=== PATIENT | female | born 1950 | race African-American/Black ===

== ENCOUNTER 2017-11-26 07:07 | Day surgery (SDC) | payer BC ==
[2017-11-23 11:12] VITALS: BMI 24.7
--- NOTE | 2017-11-23 14:19 | HP ---
Admitting History and Physical - Primary Care Physician PCP: Jorden Urrutia - Admission Chief Complaint: right breast cancer History of Present Illness: 67 year old postmenapausal female who underwent routine mammogram 09/2017 showing developing right breast retroareolar density. US showed 1.1 cm irregular mass right retroareolar region. 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 Breast MRI showed localized right breast cancer W/O adenopathy. History Source: Patient Limitations to Obtaining History: No Limitations - Past Medical History Endocrine: Yes: Diabetes Mellitus - Past Surgical History Past Surgical History: Yes: Additional Past Surgical History: bilateral shoulder surgery - Smoking History Smoking history: Never smoked - Alcohol/Substance Use Hx Alcohol Use: Yes (RARELY) Home Medications - Allergies Allergies/Adverse Reactions: Allergies Allergy/AdvReac Type Severity Reaction Status Date / Time procaine [From Novocain] AdvReac Verified 11/23/17 11:03 - Home Medications Home Medications: Ambulatory Orders Insulin Detemir [Levemir Flextouch] 40 unit SQ BID 11/23/17 Metformin HCl [Glucophage] 1,000 mg PO BID 11/23/17 Family Disease History - Family Disease History Family History: Denies Physical Examination Constitutional: Yes: No Distress Breast(s): Yes: Other (Ptotic full C cup breast Post bx right breast changes with bruising resolving no palpable mass or adenopathy bilaterally) Problem List - Problems (1) Breast cancer, right breast Code(s): C50.911 - MALIGNANT NEOPLASM OF UNSP SITE OF RIGHT FEMALE BREAST Qualifiers: Breast location: central portion of breast Estrogen receptor status: positive Patient sex: female Qualified Code(s): C50.111 - Malignant neoplasm of central portion of right female breast; Z17.0 - Estrogen receptor positive status [ER+] Assessment/Plan Right breast wide excision ,sentenel node biopsy, lymphoscintogram, possible axillary node dissection, mammogram needle localization
[2017-11-26] MEDS ORDERED: BUPIVACAINE HCL/PF 2.5 MG/ML - 30 ML VIAL IJ ONE (12:13)
[2017-11-26] MEDS ORDERED: GUM MASTIC/STORAX/MSAL/ALCOHOL 1 DRP DROPSBTL MC ONE (12:13)
[2017-11-26] MEDS ORDERED: PROPOFOL 20 ML ONE (12:21)
[2017-11-26] MEDS ORDERED: MIDAZOLAM HCL 2 MG/2 ML SINGLE DOSE VIAL ONE (12:21)
[2017-11-26] MEDS ORDERED: SUCCINYLCHOLINE CHLORIDE 200 MG/10 ML VIAL ONE (12:21)
[2017-11-26] MEDS ORDERED: ONDANSETRON 4 MG/2 ML VIAL IVPUSH PRN ×2 (14:30→14:37)
[2017-11-26] MEDS ORDERED: KETOROLAC TROMETHAMINE 30 MG/1 ML VIAL IVPUSH PRN (14:30)
[2017-11-26] MEDS ORDERED: DEXTROSE 5%-0.45% SALINE 1,000 ML IV SCH (14:30)
[2017-11-26] MEDS ORDERED: PROMETHAZINE HCL 25 MG/1 ML VIAL IVPUSH PRN (14:37)
[2017-11-26] MEDS ORDERED: oxyCODONE HCL 5 MG TABLET PO PRN ×2 (14:37)
[2017-11-26] MEDS ORDERED: ONDANSETRON 4 MG/2 ML VIAL ONE (14:53)
--- NOTE | 2017-11-26 15:01 | OP ---
DATE OF OPERATION: 11/26/2017 PREOPERATIVE DIAGNOSIS: Right central breast cancer. POSTOPERATIVE DIAGNOSIS: Right central breast cancer. PROCEDURE PERFORMED: Right breast partial mastectomy with mammographic needle localization and right axillary sentinel lymph node biopsy. PRIMARY SURGEON: Rani Urrutia MD INTERNATIONAL EXCHANGE COORDINATOR: CATIA Dodd ANESTHESIA: General laryngeal mask airway anesthesia. COMPLICATIONS: There were no complications. INDICATIONS: Briefly, the patient is a 67-year-old , postmenopausal female of [place] descent but no family history of breast or ovarian cancer. She was found to have a right retroareolar mass on screening mammography on October 12, 2017, and ultrasound confirmed a 1.1-cm retroareolar mass, which was biopsied under ultrasound guidance on October 26, 2017, showing an invasive ductal cancer, which was poorly differentiated and ER/CA positive and HER-II/NEISHA negative. The patient underwent an MRI, showing localized disease. The patient was found to be a good candidate for right breast partial mastectomy and understood the need for sentinel lymph node biopsy. DESCRIPTION OF PROCEDURE: The patient was brought in for the procedure on November 26, 2017. She first underwent mammographic needle localization and lymph node scintigraphy, performed at [facility], and was brought to the [facility] holding area. In the holding area, site verification was made and informed consent was obtained. She was brought into the operating room and laid on the OR table in the supine position. The right breast was sterilely prepped and draped in the usual fashion. She had Venodynes placed on the lower extremities prior to induction. She received 1 gm of Ancef prior to incision. She underwent general laryngeal mask airway anesthesia. Lymphazurin Blue, 3 mL, was injected intradermally and peritumorly around the needle localization site, and massage was instituted. An incision was made just below the hair-bearing area of the right axilla, and dissection was undertaken. A blue lymphatic was seen coursing to a blue hot lymph node with a 10-second gamma count of 5073. No other hot or blue nodes were found, and background count (after removal of this node) was 47. The node was sent down to pathology for permanent section, in formation. Hemostasis was achieved and the axillary wound was closed using interrupted 2-0 plain suture and then interrupted 3-0 deep dermal Vicryl suture and a running 4-0 subcuticular Biosyn suture. At this point a wide excision was undertaken around the needle localization site. Incision was made around the periareolar border of the right breast nipple-areolar complex. Dissection was undertaken around the needle localization and the breast tissue was completely removed from around the wire, with the wire intact in the middle of the specimen. The specimen was oriented with a long lateral suture and a short superior suture. Specimen radiograph showed removal of the clip in question. Hemostasis was achieved. At this point, separate margins were then on the superior, inferior, medial, lateral, deep and anterior margins, with a suture marking the biopsy cavity side. A 4 x 3 tissue-transfer closure was accomplished by bringing in about a 4-cm region of breast tissue into the defect. The breast tissue was then reapproximated using 2-0 plain suture. The skin was closed using interrupted 3-0 deep dermal Vicryl suture and a running 4-0 subcuticular Biosyn suture. Mastisol and Steri-Strips were applied over the wounds, with a compressive dressing placed over this. She was placed in a surgical bra postoperatively. All sponge and needle counts were correct at the end of the case. Estimated blood loss was about 20 mL. She was hemodynamically stable throughout. The patient had the laryngeal mask airway tube removed at the end of the case. She will be recovered in the postanesthesia care unit and then discharged home the same day once discharge criteria are met. She is to follow up in the office in 1 week for a formal wound and pathology check. RANI URRUTIA M.D. [id number]
[2017-11-26 16:56] VITALS: BP 116/74; PULSE 78
[2017-11-26 16:58] VITALS: TEMP 98
--- NOTE | 2017-12-01 18:11 | PATH ---
Surgical Pathology Report Patient Name: DEBBIE CAZARES [facility]. Rec. #: [id number] /Age/Gender: 1950 (Age: 67) / F Account: [id number] Location: [facility] AMBULATORY Taken: 11/26/2017 Received: 11/26/2017 Reported: 12/01/2017 Physicians: Jorden Urrutia M.D. Specimen(s) Received A: SENTINEL LYMPH NODE #1 RIGHT B: RIGHT BREAST WIDE EXCISION C: RIGHT BREAST SUPERIOR MARGIN D: RIGHT BREAST MEDIAL MARGIN E: RIGHT BREAST INFERIOR MARGIN F: RIGHT BREAST LATERAL MARGIN G: RIGHT BREAST DEEP MARGIN H: RIGHT BREAST ANTERIOR MARGIN Clinical History Invasive, right, retroareolar cancer DL/11/27/2017 Final Diagnosis A. SENTINEL LYMPH NODE #1, RIGHT, EXCISION: ONE LYMPH NODE WITH ISOLATED TUMOR CELL CLUSTERS ON H&E AND CONFIRMED BY CYTOKERATIN AE1/3 (0/1, =0.2 mm and =200 cells). NO EXTRANODAL EXTENSION IDENTIFIED. B. BREAST, RIGHT, WIDE EXCISION: INVASIVE DUCTAL CARCINOMA, POORLY DIFFERENTIATED (TUBULE SCORE: 3/3, NUCLEAR GRADE: 3/3, MITOTIC SCORE: 3/3; TOTAL MAYRA SCORE: 9/9) WITH MICROPAPILLARY FEATURES. INVASIVE CARCINOMA MEASURES 1.3 CM IN GREATEST MICROSCOPIC DIMENSION. EXTENSIVE DUCTAL CARCINOMA IN SITU (DCIS), SOLID, CRIBRIFORM, AND MICROPAPILLARY TYPES, HIGH NUCLEAR GRADE, WITH ASSOCIATED MODERATE NECROSIS. DCIS PRESENT ADJACENT INVASIVE CARCINOMA AND SURROUNDING BREAST TISSUE. LYMPHOVASCULAR INVASION IDENTIFIED. SURGICAL MARGINS ARE UNINVOLVED BY INVASIVE CARCINOMA; INVASIVE CARCINOMA IS 3 MM FROM CLOSEST DEEP MARGIN. DCIS IS <1 MM FROM INFERIOR AND DEEP MARGINS. SEE SPECIMEN C-H FOR FINAL MARGINS. PRIOR BIOPSY SITE CHANGES ARE PRESENT. REMAINDER OF BREAST TISSUE SHOWS SMALL FIBROADENOMA, FIBROCYSTIC CHANGES INCLUDING STROMAL FIBROSIS, MICROCYSTS, FOCAL ATYPICAL AND USUAL DUCTAL HYPERPLASIA. PATHOLOGIC STAGE (PTNM): pT1c pN0 (i+) (sn). SEE INVASIVE CARCINOMA CASE SUMMARY BELOW. C. BREAST, RIGHT, SUPERIOR MARGIN, EXCISION: DUCTAL CARCINOMA IN SITU (DCIS). NEW SURGICAL MARGIN IS NEGATIVE. D. BREAST, RIGHT, MEDIAL MARGIN, EXCISION: BENIGN BREAST TISSUE. E. BREAST, RIGHT, INFERIOR MARGIN, EXCISION: FOCAL DUCTAL CARCINOMA IN SITU (DCIS). NEW SURGICAL MARGIN IS NEGATIVE. F. BREAST, RIGHT, LATERAL MARGIN, EXCISION: DUCTAL CARCINOMA IN SITU (DCIS). DCIS IS 2 MM FROM NEW SURGICAL MARGIN. G. BREAST, RIGHT, DEEP MARGIN, EXCISION: BENIGN BREAST TISSUE. H. BREAST, RIGHT, ANTERIOR MARGIN, EXCISION: BENIGN BREAST TISSUE. Comments Breast Invasive Carcinoma: Surgical Pathology Case Summary (Based on AJCC TNM 8 th edition) Procedure _X_ Excision (less than total mastectomy) Specimen Laterality _X_ Right Tumor Size _X__ Greatest dimension of largest invasive focus >1 mm (specify exact measurement) (millimeters): _13_ mm Histologic Type _X__ Invasive ductal carcinoma with micropapillary features Histologic Grade (Mayra Histologic Score) Glandular (Acinar)/Tubular Differentiation _X_ Score 3 (<10% of tumor area forming glandular/tubular structures) Nuclear Pleomorphism _X_ Score 3 Mitotic Rate _X_ Score 3 Overall Grade _X_ Grade 3 (scores of 9) Tumor Focality _X_ Single focus of invasive carcinoma Ductal Carcinoma In Situ (DCIS) _X__ DCIS is present in specimen _X_ Positive for extensive intraductal component (EIC) Margins Invasive Carcinoma Margins _X__ Uninvolved by invasive carcinoma Distance from closest margin (millimeters): 3 mm Closest margin: Deep DCIS Margins _X__ Uninvolved by DCIS Distance from closest margin (millimeters): Lateral: 2 mm from new margin (F); Deep and inferior: <1 mm in wide excision, but negative in new margins (E,G) Closest margin: new lateral Regional Lymph Nodes Number of Lymph Nodes with Macrometastases (>2 mm): 0 Number of Lymph Nodes with Micrometastases (>0.2 mm to 2 mm and/or >200 cells): 0 Number of Lymph Nodes with Isolated Tumor Cells (=0.2 mm and =200 cells): 1 Size of Largest Metastatic Deposit (millimeters): < 200 cells Extranodal Extension: _X__ Not identified Number of Lymph Nodes Examined: 1 Number of [place] Nodes Examined : 1 Treatment Effect _X_ No known presurgical therapy Lymphovascular Invasion _X__ Present Pathologic Stage Classification (pTNM, AJCC 8th Edition) Primary Tumor (Invasive Carcinoma) (pT) _X__ pT1c: Tumor >10 mm but =20 mm in greatest dimension Regional Lymph Nodes (pN) Modifier _X__ (sn): [place] node(s) evaluated. Category (pN) _X__ pN0 (i+): ITCs only (malignant cell clusters no larger than 0.2 mm) in regional lymph node(s) Biomarker Studies Results of ER and WY studies performed on this specimen on prior biopsy ([id number]) at [facility] are as follows: ER (clone [id number] mouse monoclonal antibody by [employer]): 100% nuclear staining with strong intensity (Positive). WY (clone16 mouse monoclonal antibody by Leica): ~5% nuclear staining with strong intensity (Positive). Results of Her2 (IHC) & Ki-67 studies performed on prior biopsy ([id number]) at [place], [place] ([id number]) are as follows: Her2 IHC (EP3 from [employer], formerly known as [id number], using Irizarry Polymer Refine detection kit): 0 (Negative). Ki67: ~60% (High proliferative index). Electronically Signed Leticia Haji M.D. Gross Description A. Received in formalin labeled "sentinel lymph node #1 right breast," is a 1.1 x 0.8 x 0.6 cm otto lymph node with attached fat. The specimen is bisected and entirely submitted in one cassette. B. Received in formalin, labeled "right breast wide excision," is a 6.3 x 5.0 x 2.7 cm. otto-yellow, irregular, portion of fibroadipose tissue with a needle localization wire present. There is a short suture marking the superior aspect and a long suture marking the lateral aspect, per the surgeon. There is no skin or nipple present. The specimen is inked as follows: superior and lateral blue; inferior green; medial yellow; anterior red; deep black. The specimen is serially sectioned from medial to lateral. Sectioning reveals a 1.3 x 0.9 x 0.7 cm otto, indurated mass at 0.4 cm from the deep margin. The mass is 1.1 cm from the anterior margin and show 1.0 cm from the superior margin. The remaining margins appear clear of the mass. Coroner'S Juror sections are submitted in cassettes as follows: 1-fullface section of mass with deep margin; 2-additional fullface section of mass with deep margin; 3-superior margin; 4-anterior margin; 3-5-vzmovmrk margin; 7-medial margin; 8-lateral margin. Time to formalin fixation: Less than one minute Total formalin fixation time: Approximately 29 hours. C. Received in formalin labeled "right breast superior margin," is a 3.2 x 2.2 x 1.2 cm portion of fibroadipose tissue with a suture marking the biopsy cavity side, per the surgeon. The new margin is inked blue and the specimen is serially sectioned. The specimen is entirely and sequentially submitted in 4 cassettes. D. Received in formalin labeled "right breast medial margin," is a 3.2 x 2.1 x 0.7 cm portion of fibroadipose tissue with a suture marking the biopsy cavity side, per the surgeon. The new margin is inked blue and the specimen is serially sectioned. The specimen is entirely submitted in 3 cassettes. E. Received in formalin labeled "right breast inferior margin," is a 3.0 x 2.2 x 0.8 cm portion of fibroadipose tissue with a suture marking the biopsy cavity side, per surgeon. The new margin is inked blue and the specimen is serially sectioned. The specimen is entirely and sequentially submitted in 4 cassettes. F. Received in formalin labeled "right breast lateral margin," is a 2.6 x 2.5 x 0.7 cm portion of fibroadipose tissue with a suture marking the biopsy cavity side, per the surgeon. The new margin is inked blue and the specimen is serially sectioned. The specimen is entirely and sequentially submitted in 4 cassettes. G. Received in formalin labeled "right breast deep margin," is a 2.5 x 2.3 x 1.0 cm portion of fibroadipose tissue with a suture marking the biopsy cavity side, per the surgeon. The new margin is inked blue and the specimen is serially sectioned. The specimen is entirely and sequentially submitted in 5 cassettes. H. Received in formalin labeled "right breast anterior margin," is a 2.6 x 1.7 x 0.6 cm portion of fibroadipose tissue with a suture marking the biopsy cavity side, per the surgeon. The new margin is inked blue and the specimen is serially sectioned. The specimen is entirely submitted in 3 cassettes. 11/27/2017
== END 2017-11-26 16:50 | disposition home or self-care (01) ==
LOC: FASU 07:07
PROVIDERS: ATTEND Surgery Surgical Oncology
PROC: 0HBT0ZZ Excision of Right Breast, Open Approach (ICD-10-PCS; principal; 2017-11-26 13:06)
PROC: 0JX60ZB Transfer Chest Subcutaneous Tissue and Fascia with Skin and Subcutaneous Tissue, Open Approach (ICD-10-PCS; 2017-11-26 13:06)
DX: C50.111 Malignant neoplasm of central portion of right female breast (principal); Z17.0 Estrogen receptor positive status [ER+]; E11.9 Type 2 diabetes mellitus without complications
CPT/HCPCS: 19281; 78195-TC; 82962; 88307-TC; 94760; A9541

== ENCOUNTER 2017-12-08 11:39 | Day surgery (SDC) | payer BC ==
[2017-12-04 14:17] VITALS: BMI 24.7
--- NOTE | 2017-12-04 14:21 | HP ---
Admitting History and Physical - Primary Care Physician PCP: Jorden Urrutia - Admission Chief Complaint: right breast cancer History of Present Illness: Patient is a 67 yo female S/P right breast WE and snbx on 11/26/2017 which was positive for infitrating ductal ca and DCIS. Further DCIS was noted in the superior, inferior and lateral margins therefore patient is presenting for reexcision of positive margins. History Source: Patient Limitations to Obtaining History: No Limitations - Past Medical History Endocrine: Yes: Diabetes Mellitus - Past Surgical History Past Surgical History: Yes: Additional Past Surgical History: bilaterl shoulder sx - Smoking History Smoking history: Never smoked - Alcohol/Substance Use Hx Alcohol Use: Yes (RARELY) Home Medications - Allergies Allergies/Adverse Reactions: Allergies Allergy/AdvReac Type Severity Reaction Status Date / Time procaine [From Novocain] AdvReac Verified 12/04/17 13:29 - Home Medications Home Medications: Ambulatory Orders Insulin Detemir [Levemir Flextouch] 30 unit SQ BID 11/23/17 Metformin HCl [Glucophage] 1,000 mg PO BID 11/23/17 Review of Systems - Review of Systems Constitutional: reports: No Symptoms Cardiovascular: reports: No Symptoms Respiratory: reports: No Symptoms Physical Examination Breast(s): Yes: Other (Right incision is clean without discharge or erythema noted) Problem List - Problems (1) Breast cancer, right breast Code(s): C50.911 - MALIGNANT NEOPLASM OF UNSP SITE OF RIGHT FEMALE BREAST Qualifiers: Breast location: central portion of breast Estrogen receptor status: positive Patient sex: female Qualified Code(s): C50.111 - Malignant neoplasm of central portion of right female breast; Z17.0 - Estrogen receptor positive status [ER+] Assessment/Plan Plan: Reexcision of positive margins of the right breast.
[2017-12-08] MEDS ORDERED: MIDAZOLAM HCL 2 MG/2 ML SINGLE DOSE VIAL ONE (13:16)
[2017-12-08] MEDS ORDERED: PROPOFOL 20 ML ONE (13:16)
[2017-12-08] MEDS ORDERED: BUPIVACAINE HCL/PF 2.5 MG/ML - 30 ML VIAL IJ ONE (13:50)
[2017-12-08] MEDS ORDERED: LIDOCAINE HCL 1%, 10 MG/ML (20ML VIAL) ONE ×2 (13:50→14:19)
[2017-12-08] MEDS ORDERED: KETOROLAC TROMETHAMINE 30 MG/1 ML VIAL IVPUSH PRN (15:04)
[2017-12-08] MEDS ORDERED: ONDANSETRON 4 MG/2 ML VIAL IVPUSH PRN (15:04)
[2017-12-08] MEDS ORDERED: oxyCODONE HCL 5 MG TABLET PO PRN ×2 (15:12)
[2017-12-08] MEDS ORDERED: DEXTROSE 5%-0.45% SALINE 1,000 ML IV SCH (15:15)
[2017-12-08] MEDS ORDERED: LACTATED RINGERS SOLUTION 1,000 ML IV SCH (15:15)
[2017-12-08 16:14] VITALS: TEMP 97.9
--- NOTE | 2017-12-08 16:22 | OP ---
DATE OF OPERATION: 12/08/2017 PREOPERATIVE DIAGNOSIS: Right breast central breast cancer. POSTOPERATIVE DIAGNOSIS: Right breast central breast cancer. PROCEDURE: Reexcision of margins on the superior, inferior, and lateral aspects. SURGEON: Rani Urrutia M.D. PACKAGE SORTER: Sivakumar Wild COMPLICATIONS: There were no complications. DESCRIPTION OF PROCEDURE: Briefly, the patient is a 67-year-old 2, para 2 postmenopausal female with [place] descent but no family history of breast or ovarian cancer. She was found to have a right breast retroareolar breast cancer found on screening mammography and ultrasound in September and October of 2017. Ultrasound core biopsy showed a poorly differentiated ER/FL positive HER2/robe negative breast cancer. MRI showed it to be localized. She underwent a right breast partial mastectomy on November 26, 2017, with a sentinel lymph node biopsy which showed a 1.3 cm poorly differentiated invasive duct cancer with extensive intraductal component and lymphovascular invasion. The sentinel node was negative just with some isolated tumor cells. Unfortunately there was some further on the superior, inferior, lateral margins, and she was advised on reexcision. The patient is brought in now for reexcision of margins. The patient came into ambulatory surgery and in the holding area site verification was made, informed consent was obtained. She was brought into the operating room and laid on the OR table in the supine position. Venodynes were placed on the lower extremities. She received a gram of Ancef prior to incision. The right breast was sterilely prepped and draped in the usual sterile fashion. She was given IV sedation and 1% lidocaine is given directly underneath the previous periareolar incision. The right breast lateral periareolar incision was reopened. Dissection was undertaken and the cavity was easily found. There was a small hematoma which was evacuated. Separate margins were then taken on the superior, inferior, and lateral aspects with sutures marking the biopsy cavity of each specimen, and the specimens were each sent to separately to pathology in formalin. Hemostasis was achieved. A partial tissue transfer closure was then again accomplished by bringing in about 3 x 4 cm area of breast tissue into the wound and reapproximated using interrupted 2-0 plain suture. The skin was then closed using interrupted 3-0 deep dermal Vicryl suture and a running 4-0 subcuticular Biosyn suture. Mastisol, Steri-Strips were applied over the wound. A compressive dressing placed over this. The patient tolerated procedure well without difficulty. Estimated blood loss was minimal. The patient was awake and alert, and the procedure brought back to ambulatory surgery where she will be recovered and discharged home the same day. She will follow up in the office in 1 week for formal wound pathology check. All sponge, needle counts were correct at the end of the case, and estimated blood loss was minimal. RANI URRUTIA M.D. [id number]
[2017-12-08 16:35] VITALS: BP 126/69; PULSE 76
--- NOTE | 2017-12-11 12:16 | PATH ---
Surgical Pathology Report Patient Name: DEBBIE CAZARES [facility]. Rec. #: [id number] /Age/Gender: 1950 (Age: 67) / F Account: [id number] [facility] Taken: 12/08/2017 Received: 12/08/2017 Reported: 12/11/2017 Physicians: Jorden Urrutia M.D. Specimen(s) Received A: RIGHT BREAST SUPERIOR MARGIN B: RIGHT BREAST LATERAL MARGIN C: RIGHT BREAST INFERIOR MARGIN Clinical History Re-excision for margins Final Diagnosis A. breast, right, superior margin, excision: Benign breast tissue showing prior biopsy site changes. No residual ductal carcinoma in situ (DCIS) is identified. B. breast, right, lateral margin, excision: Ductal carcinoma in situ (DCIS), high nuclear grade, present in two of six slides (2/6). THE NEW MARGIN IS UNINVOLVED BY DCIS; DCIS is focally at 1 mm from the closest new margin. C. breast, right, inferior margin, excision: Benign breast tissue showing prior biopsy site changes. No residual ductal carcinoma in situ (DCIS) is identified. Comment: See also prior right breast wide excision [id number]. Electronically Signed Zenaida Woods M.D. Gross Description A. Received in formalin labeled "right breast superior margin," is a 3.5 x 2.7 x 1.0 cm portion of fibroadipose tissue with a suture marking the biopsy cavity side, per the surgeon. The new margin is inked blue and the specimen is serially sectioned. The specimen is entirely and sequentially submitted in 4 cassettes. B. Received in formalin labeled "right breast lateral margin," is a 3.6 x 1.8 x 1.4 cm portion of fibroadipose tissue with a suture marking the biopsy cavity side, per the surgeon. The new margin is inked blue and the specimen is serially sectioned. The specimen is entirely and sequentially submitted in 6 cassettes. C. See been formalin labeled "right breast inferior margin," is a 2.8 x 2.5 x 0.8 cm portion of fibroadipose tissue with a suture marking the biopsy cavity side, per the surgeon. The new margin is inked blue and the specimen is serially sectioned. The specimen is entirely and sequentially submitted in 3 cassettes. /12/09/201722/2018
== END 2017-12-08 16:42 | disposition home or self-care (01) ==
LOC: FASU 11:39
PROVIDERS: ATTEND Surgery Surgical Oncology
PROC: 0HBW0ZX Excision of Right Nipple, Open Approach, Diagnostic (ICD-10-PCS; principal; 2017-12-08 14:11)
DX: C50.111 Malignant neoplasm of central portion of right female breast (principal)
CPT/HCPCS: 82962; 88307-TC; 94760